=== PATIENT | female | born 1955 | race Caucasian/White ===

== ENCOUNTER 2016-08-24 17:32 | Emergency (ER) | payer SELFPAY ==
[2015-08-04 17:59] VITALS: BMI 28.7
[~2016-08-24 17:32] MED LIST: NITR-58 PO; OSLT75C PO; TRAM-40 PO
== END 2016-08-24 18:05 | disposition left against medical advice (07) ==
LOC: FTE 17:32
DX: Z53.21 Procedure and treatment not carried out due to patient leaving prior to being seen by health care provider (principal)

== ENCOUNTER 2016-08-29 09:11 | Emergency (ER) | payer MEDICAID ==
[~2016-08-29] VITALS: Wt 71.5 kg
--- NOTE | 2016-08-29 10:42 | ERD ---
ER Documentation Chief Complaint Date/Time DATE: 08/29/16 TIME: 10:32 Chief Complaint bilateral arm pain and knee pain non traumatic for the past few days. HPI 61 y/o female presents to ED for non-traumatic bilateral shoulder/elbow/knee pain for about 2 months. Pain was described as achy 7/10 in rate. 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 States that there is no pain whenever she rests. Pain here in the emergency room 0/10. Been taking Motrin without relief. Reports that she does not have a primary care physician. Denies headache, loss of consciousness, dizziness, blurry vision, changes in vision, photophobia, facial pain, ear pain, throat pain, difficulty swallowing, neck pain, shoulder pain, chest pain, cough, hemoptysis, abdominal pain, back pain, loss of appetite, nausea, vomiting, hematochezia, diarrhea, constipation, urinary symptoms, bladder and bowel incontinences, extremity weakness, trauma, numbness or tingling sensation, difficulty walking, recent travel, recent exposure to illness, recent antibiotic use in the last 3 months, fever, chills. Allergy: NKA PMH: High cholesterol Family medical history: Denies Medications: Ibuprofen Surgery: Right shoulder surgery 6 years ago. 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 ROS All systems reviewed and are negative except as per history of present illness. Medications Home Meds Active Scripts Oseltamivir Phosphate* (Tamiflu*) 75 Mg Capsule, 75 MG PO BID for 5 Days, CAP Prov:JAIDA BERNARD PA-C 10/13/15 Tramadol Hcl* (Ultram*) 50 Mg Tablet, 50 MG PO Q6H Y for PAIN, #30 TAB Prov:BON YAO PA-C 08/04/15 Nitrofurantoin Monohyd Macrocr* (Macrobid*) 100 Mg Capsr, 100 MG PO BID for 7 Days, CAP Prov:BON YAO PA-C 08/04/15 Allergies Allergies: Coded Allergies: No Known Allergy (Unverified , 10/24/14) PMhx/Soc History of Surgery: Yes (APPENDECTOMY, shoulder) Anesthesia Reaction: No Hx Neurological Disorder: No Hx Respiratory Disorders: No Hx Cardiac Disorders: No Hx Psychiatric Problems: No Hx Miscellaneous Medical Probl: Yes (sciatica) Hx Alcohol Use: No Hx Substance Use: No Hx Tobacco Use: No FmHx Denies Physical Exam Vitals Vital Signs Date Time Temp Pulse Resp B/P Pulse Ox O2 Delivery O2 Flow Rate FiO2 08/29/16 09:14 98.5 84 20 140/74 98 Physical Exam CONSTITUTIONAL: Well-appearing; well-nourished; in no apparent distress. HEAD: Normocephalic; atraumatic. EYES: Conjunctiva clear, sclera non-icteric, EOM intact. PERRL Ears: Hearing intact. EACs clear, TMs non-bulging, non-inflamed, translucent & mobile, ossicles normal appearance, No obstructions, no erythema, no discharges Nose: No obstructions. No polyps. No external lesions. Mucosa non-inflamed. No external lesions, septum and turbinates normal. No rhinorrhea. No discharges. Frontal sinus is non-tender to palpation. Maxillary sinus is non-tender to palpation. MOUTH: Moist mucous membranes, no lesion, no obstructions, no vesicles, no thrush, patent airway Throat: Uvula in midline. Right tonsil is +1 with no erythema, no exudate. Left tonsil is +1 with no erythema, no exudate. Tolerating secretions well. Good gag reflex. Patent airway. Neck: Supple, without lesions, bruits, or adenopathy. No mass. Thyroid non- enlarged and non-tender to palpation. CHEST: Symmetrical chest. Respirations even and not labored. No retractions noted. CARDIOVASCULAR: Normal S1, S2. RRR. No murmurs, gallops. RESPIRATORY: Normal chest excursion with respiration; breath sounds clear and equal bilaterally; no wheezes, rhonchi, or rales. Breathing even and unlabored. Speaking in clear, full, and complete sentences w/ ease. ABDOMEN: Normal bowel sounds normal. Soft, round, non-distended, non-guarding, no tenderness, no rebound, no organomegaly, no masses, no pulsating abdominal mass. No hernia. No peritoneal signs. : No CVA tenderness. BACK: Symmetrical shoulder. Spine is midline without deformity, tenderness. No evidence of trauma or deformity. PELVIS: Stable pelvis. No evidence of trauma or deformity. MUSCULOSKELETAL: Normal gait and station. No misalignment, asymmetry, crepitation, defects, tenderness, masses, effusions, decreased range of motion, instability, atrophy or abnormal strength or tone in the head, neck, spine, ribs , pelvis or extremities. No calf tenderness. NEUROVASCULAR: Distal pulses are present. Pedal pulse are present, equal, and normal. Capillary refills are < 2 seconds. NEUROLOGIC: Alert and oriented x4. Speaks full and clear sentences. Cranial Nerves II-XII normal. Sensation to pain, touch, and proprioception normal. Grossly unremarkable. No neurologic deficits. Romberg test is negative. PSYCHOLOGICAL: The patients mood and manner are appropriate. No hallucinations , delusions. Not SI. Not HI. Has the capacity to decide for self SKIN: Normal for age and ethnicity; warm; dry; good turgor; no apparent lesions or exudates. No rashes, hives, discoloration. Intact. Procedures/MDM Examination: Unremarkable examination Disease process, medical treatment was explained to the patient and family member. They verbalized understanding and agreed with the diagnostic tests, and follow-up care. Re-evaluation: Consultation: None Differential diagnosis: Fracture versus contusion versus sprain versus arthritis versus rheumatoid arthritis versus musculoskeletal pain. Case and medical management was discussed with Dr. Dmitry Li. He agreed with present treatment and after care. Medical decision makin61 y/o female presents to ED for non-traumatic bilateral shoulder/elbow/knee pain for about 2 months. Pain was described as achy 7/10 in rate. 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 States that there is no pain whenever she rests. Pain here in the emergency room 0/10. Been taking Motrin without relief. Reports that she does not have a primary care physician. Medications prescribed are the following: Tramadol Patient and family member are made aware of the side effects and adverse reactions of the medications prescribed. Instructed on when to seek emergent and medical attention in case allergic/anaphylactic reactions or severe side effects and or adverse reactions to medications. Patient and family member verbalized understanding. Patient instructed Instructed to follow-up with his PCP in 24-48 hours. Community resources were given to the patient. Stated that she will go to the community resources as soon as possible. Instructed to Call 911 for chest pain, shortness of breath. Advised to come back here in ED as soon as possible for severity of symptoms which includes but not limited to: any new symptoms; shortness of breath/difficulty of breathing; cardiovascular changes; severe gastrointestinal symptoms; signs and symptoms of bleeding and or infection; signs of compartment syndrome/neurovascular changes; neurological changes/deficits. Patient and family member verbalized understanding. Upon discharge, patient is alert and oriented x 4, speaks full and clear sentences, denies pain, has no neurological deficits, has no neurovascular deficits, difficulty of breathing. Breathing even and unlabored. Lung sounds are clear to auscultation. Not in distress. Appears comfortable. Ambulatory with steady gait. Appears satisfied with care provided here in ED. Departure Condition: Good Additional Instructions: Patient instructed Instructed to follow-up with his PCP in 24-48 hours. Community resources were given to the patient. Stated that she will go to the community resources as soon as possible. Instructed to Call 911 for chest pain, shortness of breath. Advised to come back here in ED as soon as possible for severity of symptoms which includes but not limited to: any new symptoms; shortness of breath/difficulty of breathing; cardiovascular changes; severe gastrointestinal symptoms; signs and symptoms of bleeding and or infection; signs of compartment syndrome/neurovascular changes; neurological changes/deficits. Patient and family member verbalized understanding. Upon discharge, patient is alert and oriented x 4, speaks full and clear sentences, denies pain, has no neurological deficits, has no neurovascular deficits, difficulty of breathing. Breathing even and unlabored. Lung sounds are clear to auscultation. Not in distress. Appears comfortable. Ambulatory with steady gait. Appears satisfied with care provided here in ED. SHAUN FERNANDES Aug 29, 2016 10:42
[2016-08-29] MEDS ORDERED: TRAM50TA2 PO (10:46)
== END 2016-08-29 11:00 | disposition home or self-care (01) ==
LOC: FTE 09:11
DX: M25.512 Pain in left shoulder (principal); M25.521 Pain in right elbow; M25.522 Pain in left elbow; M25.561 Pain in right knee; M25.562 Pain in left knee
CPT/HCPCS: 99283

== ENCOUNTER 2016-12-01 18:43 | Emergency (ER) | payer MEDICAID ==
[~2016-12-01] VITALS: Ht 152.4 cm; Wt 69.5 kg
[~2016-12-01 18:43] MED LIST changes: +TRAM50TA2 PO
[2016-12-01 19:16] VITALS: Ht 152.4 cm; Wt 69.5 kg
[2016-12-01] MEDS ORDERED: NAPH15DR22 BOTH EYES (19:31)
[2016-12-01] MEDS ORDERED: IBUP-1542 PO (19:31)
[2016-12-01] MEDS ORDERED: CETI10CA PO (19:31)
[2016-12-01] MEDS ORDERED: FLUT9.9S NASAL (19:31)
--- NOTE | 2016-12-01 19:41 | ERD ---
ER Documentation Chief Complaint Date/Time DATE: 12/01/16 TIME: 19:38 Chief Complaint nasal congestion x 8 days HPI 61-year-old female presents to emergency department for complaints of runny nose nasal congestion, stuffy nose, sneezing, watery eyes for 8 days. Patient denies any cough, patient is complaining of itching in the throat, complains of postnasal drip. She took [id number] medication with only mild relief. Patient denies any fever or chills. Patient denies any chest palpitations. Patient denies any shortness breath or wheezing. Patient denies any purulent discharge from the nose, patient denies any discharge from the eyes. ROS All systems reviewed and are negative except as per history of present illness. Medications Home Meds Active Scripts Naphazoline-Pheniramine* (Visine-A*) 15 Ml Drops, 2 DROP BOTH EYES Q4H Y for eye itching, #1 BOT Prov:NILA MCKENNA NP 12/01/16 Ibuprofen* (Motrin*) 600 Mg Tab, 600 MG PO Q6H Y for PAIN AND OR ELEVATED TEMP, #30 TAB Prov:NILA MCKENNA NP 12/01/16 Cetirizine Hcl* (Zyrtec*) 10 Mg Capsule, 10 MG PO DAILY, #30 TAB.CHEW Prov:NILA MCKENNA NP 12/01/16 Fluticasone Propionate (Flonase Allergy Relief) 9.9 Ml [place].susp, 1 SPRAY NASAL BID, #1 BOTTLE TO EACH NOSTRIL Prov:NILA MCKENNA NP 12/01/16 Tramadol HCl (Tramadol HCl) 50 Mg Tablet, 50 MG PO Q4 Y for PAIN, #20 TAB Prov:SHAUN FERNANDES 08/29/16 Oseltamivir Phosphate* (Tamiflu*) 75 Mg Capsule, 75 MG PO BID for 5 Days, CAP Prov:JAIDA BERNARD PA-C 10/13/15 Tramadol Hcl* (Ultram*) 50 Mg Tablet, 50 MG PO Q6H Y for PAIN, #30 TAB Prov:BON YAO PA-C 08/04/15 Nitrofurantoin Monohyd Macrocr* (Macrobid*) 100 Mg Capsr, 100 MG PO BID for 7 Days, CAP Prov:BON YAO PA-C 08/04/15 Allergies Allergies: Coded Allergies: No Known Allergy (Unverified , 12/01/16) PMhx/Soc History of Surgery: Yes (APPENDECTOMY, shoulder) Anesthesia Reaction: No Hx Neurological Disorder: No Hx Respiratory Disorders: No Hx Cardiac Disorders: No Hx Psychiatric Problems: No Hx Miscellaneous Medical Probl: Yes (sciatica) Hx Alcohol Use: No Hx Substance Use: No Hx Tobacco Use: No FmHx Family History: No coronary disease, No diabetes, No other Physical Exam Vitals Vital Signs Date Time Temp Pulse Resp B/P Pulse Ox O2 Delivery O2 Flow Rate FiO2 12/01/16 19:16 98.2 67 20 144/67 99 Physical Exam GENERAL: The patient is well developed and appropriate for usual state of health, in no apparent distress. HEENT: Atraumatic. Eyes are PERRL, EOM intact, bilateral eye conjunctival is noted to be nonerythematous and not injected but is watery. No purulent discharge from both eyes. Ears: Normal tympanic membrane, no erythema or bulging. No ear canal swelling. No ear discharge. Nose: Pale boggy nares with clear nasal discharge. Throat: oropharynx clear. No tonsillar swelling or tonsillar exudates. No lymphadenopathy. CHEST: Clear to auscultation bilaterally. There are no rales, wheezes or rhonchi. HEART: Regular rate and rhythm. No murmurs, clicks, rubs or gallops. No S3 or S4. ABDOMEN: Soft, nontender and nondistended. Good bowel sounds. No rebound or guarding. No gross peritonitis. No gross organomegaly or masses. No Goyal sign or McBurney point tenderness. BACK: No midline or flank tenderness. EXTREMITIES: Equal pulses bilaterally. There is no peripheral clubbing, cyanosis or edema. No focal swelling or erythema. Full range of motion. Grossly neurovascularly intact. NEURO: Alert and oriented. Cranial nerves 2-12 intact. Motor strength in all 4 extremities with 5/5 strength. Sensation grossly intact. Normal speech and gait. SKIN: There is no apparent rash or petechia. The skin is warm and dry. HEMATOLOGIC AND LYMPHATIC: There is no evidence of excessive bruising or lymphedema. No gross cervical, axillary, or inguinal lymphadenopathy. Procedures/MDM Medical decision making: Patient symptoms is likely consistent with allergic conjunctivitis and allergic rhinitis, no symptoms of any acute bacterial infection, no symptoms of acute bacterial conjunctivitis, acute bacterial sinusitis. Patient is not febrile. No symptoms of eye emergencies. Patient is given prescription for Zyrtec, Flonase, Naphcon, is advised to follow-up with primary doctor in 2-3 days for reevaluation of symptoms. Patient is advised to return to emergency department for any worsening symptoms be Departure Diagnosis: Primary Impression: Allergic conjunctivitis and rhinitis Laterality: bilateral Qualified Code: H10.13 - Allergic conjunctivitis and rhinitis, bilateral Condition: Stable Patient Instructions: Conjunctivitis, Allergic, Allergic Rhinitis NILA MCKENNA NP Dec 01, 2016 19:41
== END 2016-12-01 19:35 | disposition home or self-care (01) ==
LOC: E/R 18:43
DX: H10.13 Acute atopic conjunctivitis, bilateral (principal)
CPT/HCPCS: 99283

== ENCOUNTER 2017-04-06 18:45 | Emergency (ER) | payer MEDICAID ==
[~2017-04-06] VITALS: Ht 162.6 cm; Wt 68.0 kg
[~2017-04-06 18:45] MED LIST changes: +CETI10CA PO; +FLUT9.9S NASAL; +IBUP-1542 PO; +NAPH15DR22 BOTH EYES
[2017-04-06 18:52] VITALS: Ht 162.6 cm; Wt 68.0 kg
[2017-04-06] MEDS ORDERED: KETOROLAC 60 MG INJ IM STA (20:51)
--- NOTE | 2017-04-06 21:37 | ERD ---
ER Documentation Chief Complaint Date/Time DATE: 04/06/17 TIME: 21:27 Chief Complaint left leg pain x 5 days, denies injury HPI This is a 61-year-old female presents to the ER with left knee pain for the last 5 days. Patient states that knee pain started after she was moving her couch with her knees. Knee is sharp and intermittent, it is worse after she works all day. Pain is nonradiating. Patient states that she works standing up and has long hours. Patient denies any numbness or tingling of her lower extremity. She denies any redness, swelling, fevers or chills. Patient took naproxen for her pain and this helped her pain. ROS 12 point review of systems was done, all negative except per HPI. Medications Home Meds Active Scripts Tramadol Hcl* (Ultram*) 50 Mg Tablet, 50 MG PO Q6H Y for PAIN, #15 TAB Prov:VANESA CHAUDHRY 04/06/17 Naproxen* (Naprosyn*) 500 Mg Tablet, 500 MG PO BID Y for PAIN AND/OR INFLAMMATION, #30 TAB Prov:VANESA CHAUDHRY 04/06/17 Naphazoline-Pheniramine* (Visine-A*) 15 Ml Drops, 2 DROP BOTH EYES Q4H Y for eye itching, #1 BOT Prov:NILA MCKENNA NP 12/01/16 Ibuprofen* (Motrin*) 600 Mg Tab, 600 MG PO Q6H Y for PAIN AND OR ELEVATED TEMP, #30 TAB Prov:NILA MCKENNA NP 12/01/16 Cetirizine Hcl* (Zyrtec*) 10 Mg Capsule, 10 MG PO DAILY, #30 TAB.CHEW Prov:NILA MCKENNA NP 12/01/16 Fluticasone Propionate (Flonase Allergy Relief) 9.9 Ml [place].susp, 1 SPRAY NASAL BID, #1 BOTTLE TO EACH NOSTRIL Prov:NILA MCKENNA NP 12/01/16 Tramadol HCl (Tramadol HCl) 50 Mg Tablet, 50 MG PO Q4 Y for PAIN, #20 TAB Prov:SHAUN FERNANDES 08/29/16 Oseltamivir Phosphate* (Tamiflu*) 75 Mg Capsule, 75 MG PO BID for 5 Days, CAP Prov:JAIDA BERNARD PA-C 10/13/15 Tramadol Hcl* (Ultram*) 50 Mg Tablet, 50 MG PO Q6H Y for PAIN, #30 TAB Prov:BON YAO PA-C 08/04/15 Nitrofurantoin Monohyd Macrocr* (Macrobid*) 100 Mg Capsr, 100 MG PO BID for 7 Days, CAP Prov:BON AYO PA-C 08/04/15 Allergies Allergies: Coded Allergies: No Known Allergy (Unverified , 12/01/16) PMhx/Soc Medical and Surgical Hx: pt denies Medical Hx, pt denies Surgical Hx History of Surgery: Yes (APPENDECTOMY, shoulder) Anesthesia Reaction: No Hx Neurological Disorder: No Hx Respiratory Disorders: No Hx Cardiac Disorders: No Hx Psychiatric Problems: No Hx Miscellaneous Medical Probl: Yes (sciatica) Hx Alcohol Use: No Hx Substance Use: No Hx Tobacco Use: No Smoking Status: Never smoker Physical Exam Vitals Vital Signs Date Time Temp Pulse Resp B/P Pulse Ox O2 Delivery O2 Flow Rate FiO2 04/06/17 22:10 60 17 135/74 98 Room Air 04/06/17 18:52 97.8 71 20 111/65 99 Physical Exam GENERAL: The patient is well developed and appropriate for usual state of health , in no apparent distress. HEENT: Atraumatic CHEST: Clear to auscultation bilaterally. There are no rales, wheezes or rhonchi. HEART: Regular rate and rhythm. No murmurs, clicks, rubs or gallops. EXTREMITIES: Left knee: Patient is able to bear weight and ambulate without pain. No surface trauma. No overlying erythema or warmth. The left knee is without obvious asymmetry when compared to the right knee. Patient is able to deep bend. she is able to fully extend knee, internal and external rotation. Not tender to palpation over the patella, no effusion. Not tender over the medial or lateral joint line, or the medial or lateral tibial plateau. Not tender to palpation over the proximal fibular head. No quadricep tenderness. No laxity of the ACL, PCL, MCL or LCL. Negative Amdhu test. Negative anterior and posterior drawer. Distal motor neurovascular status intact. NEURO: Alert and oriented SKIN: The skin is warm and dry. Results 24 hrs Current Medications Medications (Trade) Dose Ordered Sig/Pilar Route PRN Reason Start Time Stop Time Status Last Admin Dose Admin Ketorolac Tromethamine (Toradol) 60 mg ONCE STAT IM 04/06/17 20:51 04/06/17 20:53 DC 04/06/17 21:43 [place] [id number] Radiology Main Line: [phone] DIAGNOSTIC IMAGING REPORT Patient: KIRILL ROGEL : 1955 Age: 61 Sex: F MR #: [id number] DOS: 04/06/17 0000 Ordering MD: VANESA CHAUDHRY PA-C Location: [facility] Room/Bed: PROCEDURE: Left knee radiographs. CLINICAL INDICATION: Left knee pain. TECHNIQUE: Three views. Weight bearing. Frontal, lateral, and oblique. COMPARISON: No prior studies are available for comparison. FINDINGS: There is no fracture or dislocation. The soft tissues are normal. There are mild degenerative changes with small osteophytes arising from all 3 joint compartment margins. There is no lytic or blastic lesion. There is no radiopaque foreign body. IMPRESSION: 1. Mild degenerative change. 2. Otherwise normal images of the left knee. RPTAT: QQ .Dmitry Drew MD, MD Date Time Electronically viewed and signed by .Dmitry Drew MD, MD on 04/06/2017 21:41 .R/ CC: VANESA CHAUDHRY Procedures/MDM Differential diagnosis includes but is not limited to knee contusion, knee sprain, ligament injury, patellar dislocation, joint dislocation, patellar or tibial plateau fracture, Mead's cyst, DVT, meniscus tear, prepatellar bursitis , septic joint, gout, tumor., .Patient likely has a knee contusion. Patient is afebrile and extremely well-appearing suspicion for infectious etiology is low. Suspicion for osteomyelitis is low. Patient does not have any symptoms that were concerning for DVT. Patient will be sent home with medication. She is to follow-up with her primary care doctor within 1-2 days return to ER sooner if symptoms worsen. My medical decision making sure with the patient she understands and agrees with plan. Departure Diagnosis: Primary Impression: Knee pain, left ISIDOROVANESA Farrell Apr 06, 2017 21:37
--- NOTE | 2017-04-06 21:41 | RADRPT ---
PROCEDURE: Left knee radiographs. CLINICAL INDICATION: Left knee pain. TECHNIQUE: Three views. Weight bearing. Frontal, lateral, and oblique. COMPARISON: No prior studies are available for comparison. FINDINGS: There is no fracture or dislocation. The soft tissues are normal. There are mild degenerative changes with small osteophytes arising from all 3 joint compartment landry ins. There is no lytic or blastic lesion. There is no radiopaque foreign body. IMPRESSION: 1. Mild degenerative change. 2. Otherwise normal images of the left knee. RPTAT: QQ .Dmitry Drew MD, MD Date Time Electronically viewed and signed by .Dmitry Drew MD, on 04/06/2017 21:41 .R/
[2017-04-06] MEDS ORDERED: NAPR-260 PO (22:01)
[2017-04-06] MEDS ORDERED: TRAM-40 PO (22:02)
[2017-04-06 22:10] VITALS: BP 135/74; PULSE 60; RESP 17
== END 2017-04-06 22:10 | disposition home or self-care (01) ==
LOC: FTE 18:45
DX: M25.562 Pain in left knee (principal)
CPT/HCPCS: 73562; 96372; J1885; Z7502

== ENCOUNTER 2017-04-15 19:30 | Emergency (ER) | payer MEDICAID ==
[~2017-04-15] VITALS: Wt 62.0 kg
[~2017-04-15 19:30] MED LIST changes: +NAPR-260 PO
--- NOTE | 2017-04-15 22:16 | RADRPT ---
PROCEDURE: Ultrasound of the left lower extremity venous system. CLINICAL INDICATION: Left leg pain and swelling, deep venous thrombosis TECHNIQUE: Diez scale with and without compression, color doppler, spectral doppler of the venous system of the left lower extremity was performed. Venous augmentation maneuvers were utilized. COMPARISON: No prior studies are available for comparison. FINDINGS: Common femoral vein: Patent. Femoral vein: Patent. Popliteal vein: Patent. Calf veins: Patent. No soft tissue abnormalities are identified. IMPRESSION: No evidence of a deep vein thrombosis within the left lower extremity. RPTAT: AADD .Les Price MD, MD Date Time Electronically viewed and signed by .Les Price MD, on 04/15/2017 22:16 .B/
--- NOTE | 2017-04-15 22:58 | RADRPT ---
PROCEDURE: Left knee x-ray CLINICAL INDICATION: Left knee pain. TECHNIQUE: AP, lateral and oblique views of the left knee were obtained. COMPARISON: 04/06/2017. FINDINGS: There is normal mineralization. No acute fracture or dislocation is seen. There are no significant degenerative changes. There is no joint effusion. There is no significant soft tissue swelling. IMPRESSION: Normal x-ray of the left knee. RPTAT: [facility] Physician Negin Date Time Electronically viewed and signed by Declan Bazzi Physician on 04/15/2017 22:57 RS/
[2017-04-15] MEDS ORDERED: NAPR-260 PO (23:13)
[2017-04-16] VITALS: BP 138/70; PULSE 61; RESP 18; TEMP 97.2
--- NOTE | 2017-04-16 00:16 | ERD ---
ER Documentation Chief Complaint Date/Time DATE: 04/16/17 TIME: 00:13 Chief Complaint left knee pain and swelling HPI 61-year-old female coming in complaining of left knee pain. Patient states that she has not had recent injury or fall. Patient denies any numbness or tingling. Patient took tramadol with no alleviation of symptoms. Denies any swelling. States the pain is worse with ambulation. Denies numbness or tingling to her distal extremity. Patient has had pain before however feels the pain is worsening. ROS All systems reviewed and are negative except as per history of present illness. Medications Home Meds Active Scripts Naproxen* (Naprosyn*) 500 Mg Tablet, 500 MG PO BID Y for PAIN AND/OR INFLAMMATION, #30 TAB Prov:BON YAO PA-C 04/15/17 Tramadol Hcl* (Ultram*) 50 Mg Tablet, 50 MG PO Q6H Y for PAIN, #15 TAB Prov:VANESA CHAUDHRY 04/06/17 Naproxen* (Naprosyn*) 500 Mg Tablet, 500 MG PO BID Y for PAIN AND/OR INFLAMMATION, #30 TAB Prov:VANESA CHAUDHRY 04/06/17 Naphazoline-Pheniramine* (Visine-A*) 15 Ml Drops, 2 DROP BOTH EYES Q4H Y for eye itching, #1 BOT Prov:NILA MCKENNA NP 12/01/16 Ibuprofen* (Motrin*) 600 Mg Tab, 600 MG PO Q6H Y for PAIN AND OR ELEVATED TEMP, #30 TAB Prov:NILA MCKENNA NP 12/01/16 Cetirizine Hcl* (Zyrtec*) 10 Mg Capsule, 10 MG PO DAILY, #30 TAB.CHEW Prov:NILA MCKENNA NP 12/01/16 Fluticasone Propionate (Flonase Allergy Relief) 9.9 Ml [place].susp, 1 SPRAY NASAL BID, #1 BOTTLE TO EACH NOSTRIL Prov:NILA MCKENNA NP 12/01/16 Tramadol HCl (Tramadol HCl) 50 Mg Tablet, 50 MG PO Q4 Y for PAIN, #20 TAB Prov:SHAUN FERNANDES 08/29/16 Oseltamivir Phosphate* (Tamiflu*) 75 Mg Capsule, 75 MG PO BID for 5 Days, CAP Prov:JAIDA BERNARD PA-C 10/13/15 Tramadol Hcl* (Ultram*) 50 Mg Tablet, 50 MG PO Q6H Y for PAIN, #30 TAB Prov:BON YAO PA-C 08/04/15 Nitrofurantoin Monohyd Macrocr* (Macrobid*) 100 Mg Capsr, 100 MG PO BID for 7 Days, CAP Prov:BON YAO PA-C 08/04/15 Allergies Allergies: Coded Allergies: No Known Allergy (Unverified , 12/01/16) PMhx/Soc History of Surgery: Yes (APPENDECTOMY, shoulder) Anesthesia Reaction: No Hx Neurological Disorder: No Hx Respiratory Disorders: No Hx Cardiac Disorders: No Hx Psychiatric Problems: No Hx Miscellaneous Medical Probl: Yes (sciatica) Hx Alcohol Use: No Hx Substance Use: No Hx Tobacco Use: No Smoking Status: Never smoker Physical Exam Vitals Vital Signs Date Time Temp Pulse Resp B/P Pulse Ox O2 Delivery O2 Flow Rate FiO2 04/16/17 00:00 97.2 61 18 138/70 100 Room Air 04/15/17 19:34 97.7 80 20 135/63 97 Physical Exam GENERAL: The patient is well-appearing, well-nourished, in no acute distress CHEST: Clear to auscultation bilaterally. There are no rales, wheezes or rhonchi. HEART: Regular rate and rhythm. No murmurs, clicks, rubs or gallops. No S3 or S4. EXTREMITIES: No valgus or varus deformity of the left knee. No obvious swelling. No warmth to the joint. Patient has normal flexion-extension however the guarded secondary to pain. No effusion. NEUROLOGIC: Alert and oriented. Cranial nerves II through XII intact. Motor strength in all 4 extremities with 5 out of 5 strength. Sensation grossly intact. Normal speech and gait. Babinski negative. DTR 2+ throughout. SKIN: There is no apparent rash or petechiae. The skin is warm and dry. HEMATOLOGIC AND LYMPHATIC: There is no evidence of excessive bruising or lymphadenopathy. No gross cervical, axillary, or inguinal lymphadenopathy. Procedures/MDM DIAGNOSTIC IMAGING REPORT Patient: KIRILL ROGEL : 1955 Age: 61 Sex: F MR #: [id number] DOS: 04/15/172028 Ordering MD: JIHAN YAO PA-C Location: [facility] Room/Bed: PROCEDURE: Ultrasound of the left lower extremity venous system. CLINICAL INDICATION: Left leg pain and swelling, deep venous thrombosis TECHNIQUE: Diez scale with and without compression, color doppler, spectral doppler of the venous system of the left lower extremity was performed. Venous augmentation maneuvers were utilized. COMPARISON: No prior studies are available for comparison. FINDINGS: Common femoral vein: Patent. Femoral vein: Patent. Popliteal vein: Patent. Calf veins: Patent. No soft tissue abnormalities are identified. IMPRESSION: No evidence of a deep vein thrombosis within the left lower extremity. DIAGNOSTIC IMAGING REPORT Patient: KIRILL ROGEL : 1955 Age: 61 Sex: F MR #: [id number] DOS: 04/15/172028 Ordering MD: JIHAN YAO PA-C Location: [facility] Room/Bed: PROCEDURE: Left knee x-ray CLINICAL INDICATION: Left knee pain. TECHNIQUE: AP, lateral and oblique views of the left knee were obtained. COMPARISON: 04/06/2017. FINDINGS: There is normal mineralization. No acute fracture or dislocation is seen. There are no significant degenerative changes. There is no joint effusion. There is no significant soft tissue swelling. IMPRESSION: Normal x-ray of the left knee. ER Course: Micah wrap given in ED MDM: 61-year-old female coming in complaining of left knee pain. I have low suspicion for septic joint. I have low suspicion for vascular emergency. I have low suspicion for acute fracture dislocation. Patient's ultrasound and x- rays are within normal limits. Patient does not have fever and there is no erythema or warmth to the joint space. Patient does not have severe pain with flexion extension. I did not feel that further workup was indicated at today's visit. Patient was given an Micah wrap for pain control. Patient was told if symptoms change or worsen to return to the ER. I recommend patient to follow- up with primary care within 1-2 days for close evaluation. Departure Diagnosis: Primary Impression: Knee pain Condition: Stable Patient Instructions: Knee Pain, Uncertain Cause Referrals: COMMUNITY CLINICS YOU HAVE RECEIVED A MEDICAL SCREENING EXAM AND THE RESULTS INDICATE THAT YOU DO NOT HAVE A CONDITION THAT REQUIRES URGENT TREATMENT IN THE EMERGENCY DEPARTMENT. FURTHER EVALUATION AND TREATMENT OF YOUR CONDITION CAN WAIT UNTIL YOU ARE SEEN IN YOUR DOCTORS OFFICE WITHIN THE NEXT 1-2 DAYS. IT IS YOUR RESPONSIBILITY TO MAKE AN APPOINTMENT FOR FOLOW-UP CARE. IF YOU HAVE A PRIMARY DOCTOR --you should call your primary doctor and schedule an appointment IF YOU DO NOT HAVE A PRIMARY DOCTOR YOU CAN CALL OUR PHYSICIAN REFERRAL HOTLINE AT IF YOU CAN NOT AFFORD TO SEE A PHYSICIAN YOU CAN CHOSE FROM THE FOLLOWING [facility] CLINICS [facility] [address] [facility]. [facility] [address] [facility] [facility] [address] [facility]. [facility] [address] [facility]. [facility] [address] [facility]. [facility] [address] Additional Instructions: FOLLOW UP WITH YOUR PRIMARY CARE PHYSICIAN TOMORROW.Return to this facility if you are not improving as expected. BON YAO PA-C Apr 16, 2017 00:16
== END 2017-04-16 | disposition home or self-care (01) ==
LOC: FTE 19:30
DX: M25.562 Pain in left knee (principal)
CPT/HCPCS: 73562; 93971; Z7502

== ENCOUNTER 2017-07-08 08:27 | Emergency (ER) | payer MEDICAID ==
[~2017-07-08] VITALS: Ht 154.9 cm; Wt 65.0 kg
[2017-07-08 08:30] VITALS: Ht 154.9 cm; Wt 65.0 kg
[2017-07-08] MEDS ORDERED: ONDANSETRON 4 MG INJ IV STA (08:48)
[2017-07-08] MEDS ORDERED: SOD CHLORIDE 0.9% 1,000 ML IV STA (09:02)
[2017-07-08] MEDS ORDERED: LIDOCAINE/MYLANTA 40 ML BTL PO STA (09:02)
[2017-07-08] MEDS ORDERED: FAMOTIDINE 20 MG TAB PO STA (09:02)
--- NOTE | 2017-07-08 09:02 | ERD ---
ER Documentation Chief Complaint Chief Complaint pt bib sefl with c/o abd pain for a few days with vomiting HPI This is a 62-year-old female with a past medical history of an appendectomy, previous UTIs, who is presenting with acute onset epigastric and right sided abdominal pain with nausea and several episodes of nonbilious nonbloody vomiting that began last night. The patient also reports episodes of diarrhea. She has not had any bloody or dark or tarry stools. She does not endorse any issues with urination. She does not endorse any bleeding or burning or pain with urination. The patient denies feeling sick recently. The patient denies fever or chills. The patient has had no headache or vision changes. The patient does not endorse neck or back pain. The patient denies lightheadedness or dizziness. The patient has had no chest pain or shortness of breath or trouble breathing. The patient has had no focal deficits. The patient has had no weakness or numbness or tingling to the face or extremities. ROS All systems reviewed and are negative except as per history of present illness. Medications Home Meds Active Scripts Naproxen* (Naprosyn*) 500 Mg Tablet, 500 MG PO BID Y for PAIN AND/OR INFLAMMATION, #30 TAB Prov:BON YAO PA-C 04/15/17 Tramadol Hcl* (Ultram*) 50 Mg Tablet, 50 MG PO Q6H Y for PAIN, #15 TAB Prov:VANESA CHAUDHRY 04/06/17 Naproxen* (Naprosyn*) 500 Mg Tablet, 500 MG PO BID Y for PAIN AND/OR INFLAMMATION, #30 TAB Prov:VANESA CHAUDHRY 04/06/17 Naphazoline-Pheniramine* (Visine-A*) 15 Ml Drops, 2 DROP BOTH EYES Q4H Y for eye itching, #1 BOT Prov:NILA MCKENNA NP 12/01/16 Ibuprofen* (Motrin*) 600 Mg Tab, 600 MG PO Q6H Y for PAIN AND OR ELEVATED TEMP, #30 TAB Prov:NILA MCKENNA NP 12/01/16 Cetirizine Hcl* (Zyrtec*) 10 Mg Capsule, 10 MG PO DAILY, #30 TAB.CHEW Prov:NILA MCKENNA NP 12/01/16 Fluticasone Propionate (Flonase Allergy Relief) 9.9 Ml [place].susp, 1 SPRAY NASAL BID, #1 BOTTLE TO EACH NOSTRIL Prov:NILA MCKENNA NP 12/01/16 Tramadol HCl (Tramadol HCl) 50 Mg Tablet, 50 MG PO Q4 Y for PAIN, #20 TAB Prov:SHAUN FERNANDES 08/29/16 Oseltamivir Phosphate* (Tamiflu*) 75 Mg Capsule, 75 MG PO BID for 5 Days, CAP Prov:JAIDA BERNARD PA-C 10/13/15 Tramadol Hcl* (Ultram*) 50 Mg Tablet, 50 MG PO Q6H Y for PAIN, #30 TAB Prov:BON YAO PA-C 08/04/15 Nitrofurantoin Monohyd Macrocr* (Macrobid*) 100 Mg Capsr, 100 MG PO BID for 7 Days, CAP Prov:BON YAO PA-C 08/04/15 Allergies Allergies: Coded Allergies: No Known Allergy (Unverified , 12/01/16) PMhx/Soc History of Surgery: Yes (APPENDECTOMY, shoulder) Anesthesia Reaction: No Hx Neurological Disorder: No Hx Respiratory Disorders: No Hx Cardiac Disorders: No Hx Psychiatric Problems: No Hx Miscellaneous Medical Probl: Yes (sciatica) Hx Alcohol Use: No Hx Substance Use: No Hx Tobacco Use: No FmHx Family History: No coronary disease, No diabetes Physical Exam Vitals Vital Signs Date Time Temp Pulse Resp B/P Pulse Ox O2 Delivery O2 Flow Rate FiO2 07/08/17 08:30 98.6 78 20 105/71 98 Physical Exam Const: No apparent distress, well-developed, well-nourished Head: Normocephalic, Atraumatic Eyes: Normal Conjunctiva. Extraocular movements intact. Pupils equal, round and reactive to light ENT: Normal External Ears, Nose and Mouth. Neck: Full range of motion. No meningismus. Resp: Clear to auscultation bilaterally, No wheezes, rales or rhonchi Cardio: Regular rate and rhythm. No murmurs, rubs or gallops Abd: Soft, non distended, tenderness to the epigastrium and right upper quadrant. Normal bowel sounds Skin: No petechiae or rashes Back: No midline tenderness. No CVA tenderness Ext: No cyanosis, or edema Neur: Awake and alert, oriented 4. Cranial nerves intact. No facial droop. Normal strength, sensation and coordination. Psych: Normal Mood and Affect Result Diagram: 07/08/17 0855 07/08/17 0855 Results 24 hrs Laboratory Tests Test 07/08/17 08:55 White Blood Count 10.210^3/ul Red Blood Count 4.6110^6/ul Hemoglobin 14.3g/dl Hematocrit 41.9% Mean Corpuscular Volume 90.9fl Mean Corpuscular Hemoglobin 31.0pg Mean Corpuscular Hemoglobin Concent 34.1g/dl Red Cell Distribution Width 13.6% Platelet Count 30259^3/UL Mean Platelet Volume 9.0fl Neutrophils % 89.2% Lymphocytes % 6.6% Monocytes % 3.0% Eosinophils % 0.6% Basophils % 0.4% Nucleated Red Blood Cells % 0.0/100WBC Neutrophils # 9.110^3/ul Lymphocytes # 0.710^3/ul Monocytes # 0.310^3/ul Eosinophils # 0.110^3/ul Basophils # 0.010^3/ul Nucleated Red Blood Cells # 0.010^3/ul Sodium Level 141mmol/L Potassium Level 4.3mmol/L Chloride Level 106mmol/L Carbon Dioxide Level 25mmol/L Anion Gap 14 Blood Urea Nitrogen 14mg/dl Creatinine 0.69mg/dl Glucose Level 139mg/dl Calcium Level 9.0mg/dl Total Bilirubin 0.6mg/dl Direct Bilirubin 0.00mg/dl Indirect Bilirubin 0.6mg/dl Aspartate Amino Transf (AST/SGOT) 38IU/L Alanine Aminotransferase (ALT/SGPT) 46IU/L Alkaline Phosphatase 126IU/L Troponin I < 0.012ng/ml Total Protein 7.9g/dl Albumin 4.4g/dl Globulin 3.50g/dl Albumin/Globulin Ratio 1.25 Lipase 387U/L Current Medications Medications (Trade) Dose Ordered Sig/Pilar Route PRN Reason Start Time Stop Time Status Last Admin Dose Admin Ondansetron HCl 4 mg 4 mg ONCE STAT IV 07/08/17 08:48 07/08/17 08:50 DC 07/08/17 09:24 Sodium Chloride (NS) 1,000 ml @ 1,000 mls/hr Q1H STAT IV 07/08/17 09:02 07/08/17 10:01 DC 07/08/17 09:24 Famotidine (Pepcid) 20 mg ONCE STAT PO 07/08/17 09:02 07/08/17 09:03 DC 07/08/17 09:24 Miscellaneous Medication (Gi Cocktail (2)) 40 ml ONCE STAT PO 07/08/17 09:02 07/08/17 09:03 DC 07/08/17 09:24 Procedures/[facility] MDM The patient's presentation warrants further investigation. The patient had a previous appendectomy and I have low suspicion for appendicitis. There is a possibility of biliary disease given her symptoms. A abdominal ultrasound will be obtained. The patient was given medications for gastritis versus GERD. I have low suspicion for a perforated ulcer. The patient does not have a palpable pulsatile mass. I have low suspicion for AAA. The patient's findings are not consistent with mesenteric ischemia. LABS The patient's blood work was obtained and reviewed. The patient's CBC shows no leukocytosis. The patient is afebrile and does not appear systemically ill. I do not suspect a systemic infection. The patient is not anemic today. The patient's platelet count is unremarkable. The patient's CMP shows no signs of metabolic or electrolyte emergencies. The patient has unremarkable renal and hepatic function testing. The patient's lipase is mildly elevated between 300- 400, but it is not 3 times the upper limit of normal. IMAGING Abd US FINDINGS: Liver Length: 15.17 cm. Parenchyma: Normal echogenicity. No suspicious mass or cyst. Portal vein: Patent with normal hepatopetal flow. Biliary tree Gallbladder: No distension. No wall thickening. No pericholecystic fluid. No sludge or stones. Intrahepatic bile duct: Normal. Common bile duct: 1.9 mm. Pancreas: The visualized pancreas is normal. Right kidney Length: 10.1 x 3.5 cm. Parenchyma: No stone or hydronephrosis. Free fluid: None. IMPRESSION: Unremarkable examination. Electronically viewed and signed by Physician Natalya on 07/08/2017 09 :30 CXR FINDINGS: The lungs are clear. No focal opacification is seen. No pneumothorax or pleural effusion is seen. The cardiomediastinal silhouette is unremarkable. The osseous structures are grossly unremarkable. IMPRESSION: No evidence of acute cardiopulmonary disease. Electronically viewed and signed by .Ernie Amanda MD, on 07/08/2017 09:19 TREATMENT/DISPOSITION The patient was given IV fluids, Zofran, Pepcid, GI cocktail with significant improvement of her symptoms. The patient's symptoms may be consistent with a gastritis or possible ulcer. She will be encouraged to refrain from using NSAIDs. Is also possibility of impending pancreatitis, but the patient's lipase is not significantly elevated at this time. She will be given prescription for Zofran and encouraged to maintain adequate oral hydration. The patient does not have symptoms consistent with a urinary tract infection. I did want to check her urine, but she did not provide us with a sample in the emergency department. She will follow-up with her doctor if she develops urinary symptoms. At this time, I feel that the patient stable for discharge. The patient will need follow-up with his primary care physician in 2-3 days. The patient will be given strict precautions with which to return to the emergency department. The patient's blood pressure was elevated at greater than 120/80 while in the emergency department. The patient was otherwise stable with no evidence of hypertensive urgency or emergency or end organ damage. The patient does not require admission for blood pressure control. I have discussed with the patient the risks of hypertension. I have advised the patient to follow up with the primary care physician for outpatient monitoring and treatment for hypertension in 2-3 days. I have instructed the patient to return to the ER for any new or worsening symptoms including chest pain, shortness of breath, headache, blurred vision, confusion, nausea, vomiting or LOC. Disclaimer: Inadvertent spelling and grammatical errors are likely due to EHR/ dictation software use and do not reflect on the overall quality of patient care. Note that the electronic time recorded on this note does not necessarily reflect the actual time of the patient encounter. Departure Diagnosis: Primary Impression: Abdominal pain Abdominal location: epigastric Qualified Code: R10.13 - Epigastric pain Additional Impression: Pancreatitis Chronicity: acute Pancreatitis type: unspecified pancreatitis type Acute pancreatitis complication: unspecified Qualified Code: K85.90 - Acute pancreatitis, unspecified complication status, unspecified pancreatitis type Condition: VANI Marie MD Jul 08, 2017 08:59
[2017-07-08 09:13] LABS: BASOPHILS % 0.4 % (0.0-2.0); EOSINOPHILS # 0.1 10^3/ul (0.0-0.5); EOSINOPHILS % 0.6 % (0.0-7.0); HEMATOCRIT 41.9 % (37.0-47.0); HEMOGLOBIN 14.3 g/dl (12.0-16.0); LYMPHOCYTES # 0.7 10^3/ul (0.8-2.9); LYMPHOCYTES % 6.6 % (15.0-51.0); MEAN CORPUSCULAR HGB CONC 34.1 g/dl (32.0-37.0); MEAN CORPUSCULAR VOLUME 90.9 fl (82.0-101.0); MONOCYTE # 0.3 10^3/ul (0.3-0.9); NEUTROPHIL # 9.1 10^3/ul (1.6-7.5); NEUTROPHILS % 89.2 % (39.0-77.0); PLATELET COUNT 267 10^3/UL (140-415); RED BLOOD COUNT 4.61 10^6/ul (4.20-5.40); RED CELL DISTRIBUTION WIDTH 13.6 % (11.5-14.5); WHITE BLOOD COUNT 10.2 10^3/ul (4.8-10.8)
--- NOTE | 2017-07-08 09:19 | RADRPT ---
PROCEDURE: XR Chest. CLINICAL INDICATION: Abdominal pain TECHNIQUE: XR CHEST AP PORTABLE COMPARISON: None available. FINDINGS: The lungs are clear. No focal opacification is seen. No pneumothorax or pleural effusion is seen. The cardiomediastinal silhouette is unremarkable. The osseous structures are grossly unremarkable. IMPRESSION: No evidence of acute cardiopulmonary disease. RPTAT: QQ .Ernie Amanda MD, MD Date Time Electronically viewed and signed by .Ernie Amanda MD, on 07/08/2017 09:19 .A/
[2017-07-08 09:28] LABS: ALANINE AMINOTRANSFERASE 46 IU/L (13-69); ALBUMIN 4.4 g/dl (3.3-4.9); ALBUMIN/GLOBULIN RATIO 1.25; ALKALINE PHOSPHATASE 126 IU/L (42-121); ANION GAP 14 (8-16); ASPARTATE AMINO TRANSFERASE 38 IU/L (15-46); BILIRUBIN,INDIRECT 0.6 mg/dl (0-1.1); BILIRUBIN,TOTAL 0.6 mg/dl (0.2-1.3); BLOOD UREA NITROGEN 14 mg/dl (7-20); CARBON DIOXIDE 25 mmol/L (21-31); CHLORIDE 106 mmol/L (97-110); CREATININE 0.69 mg/dl (0.44-1.00); GLUCOSE 139 mg/dl (70-220); POTASSIUM 4.3 mmol/L (3.5-5.1); SODIUM 141 mmol/L (135-144); TOTAL PROTEIN 7.9 g/dl (6.1-8.1)
--- NOTE | 2017-07-08 09:30 | RADRPT ---
PROCEDURE: Limited Right Upper Quadrant Ultrasound CLINICAL INDICATION: Right upper quadrant pain. COMPARISON: None relevant listed. TECHNIQUE: Multiple transverse and longitudinal cesar-scale images of the abdomen were obtained, supp lemented with color, power, and spectral Doppler imaging when appropriate. FINDINGS: Liver Length: 15.17 cm. Parenchyma: Normal echogenicity. No suspicious mass or cyst. Portal vein: Patent with normal hepatopetal flow. Biliary tree Gallbladder: No distension. No wall thickening. No pericholecystic fluid. No sludge or stones. Intrahepatic bile duct: Normal. Common bile duct: 1.9 mm. Pancreas: The visualized pancreas is normal. Right kidney Length: 10.1 x 3.5 cm. Parenchyma: No stone or hydronephrosis. Free fluid: None. Additional comment: None. IMPRESSION: Unremarkable examination. RPTAT: HRSR Physician Natalya Date Time Electronically viewed and signed by Physician Natalya on 07/08/2017 09:30 /
[2017-07-08 09:40] LABS: TROPONIN-I < 0.012 ng/ml (0.00-0.12)
[2017-07-08] MEDS ORDERED: ONDA4TAB8 PO (12:26)
[2017-07-08 12:38] VITALS: BP 130/78; PULSE 80; RESP 20
[2017-07-08 13:06] LABS: ADD UMIC YES; UR ASCORBIC ACID NEGATIVE (NEGATIVE); UR BILIRUBIN (Dip) NEGATIVE (NEGATIVE); UR BLOOD (Dip) 1+ mg/dL (NEGATIVE); UR CLARITY CLEAR (CLEAR); UR COLOR YELLOW (YELLOW); UR GLUCOSE (Dip) NEGATIVE (NEGATIVE); UR KETONES (Dip) NEGATIVE (NEGATIVE); UR LEUKOCYTE ESTERASE (Dip) 1+ Leu/ul (NEGATIVE); UR NITRITE (Dip) NEGATIVE (NEGATIVE); UR NONSQUAMOUS EPITHELIAL CELL 3 /HPF (NONE SEEN); UR RBC 8 /HPF (0-5); UR SPECIFIC GRAVITY (Dip) 1.019 (1.003-1.030); UR SQUAMOUS EPITHELIAL CELL FEW /HPF (FEW); UR TOTAL PROTEIN (Dip) NEGATIVE (NEGATIVE); UR UROBILINOGEN (Dip) NEGATIVE (NEGATIVE)
== END 2017-07-08 12:39 | disposition home or self-care (01) ==
LOC: E/R 08:27
DX: K85.90 Acute pancreatitis without necrosis or infection, unspecified (principal)
CPT/HCPCS: 36415; 71010; 76705; 80053; 81001; 83690; 84484; 85025; 96374; J2405; J7030; Z7502; Z7610

== ENCOUNTER 2018-11-26 16:34 | Emergency (ER) | payer SELFPAY ==
[~2018-11-26] VITALS: Ht 165.1 cm; Wt 68.1 kg
[~2018-11-26 16:34] MED LIST changes: -NAPH15DR22 BOTH EYES; +NAPH15DR69 BOTH EYES; -NAPR-260 PO; +NAPR-985 PO; +ONDA4TAB8 PO; +OSEL75CA23 PO; -OSLT75C PO; -TRAM-40 PO; +TRAM50TA PO
[2018-11-26 17:17] VITALS: BP 115/66; PULSE 79; RESP 18; Ht 165.1 cm; Wt 68.1 kg
[2018-11-26] MEDS ORDERED: IBUP-1542 PO (18:17)
[2018-11-26] MEDS ORDERED: TRAM50TA2 PO (18:17)
[2018-11-26] MEDS ORDERED: CYCL10TA7 PO (18:18)
--- NOTE | 2018-11-26 18:22 | ERD ---
ER Documentation Chief Complaint Chief Complaint neck, Rt shoulder, Rt hip x1wk HPI 63-year-old female presents with pain in her upper back and right shoulder right hip for last week it may have started after folding closed. She denies fall, head injury, weakness, deficits, fevers, shortness of breath or chest pain. ROS All systems reviewed and are negative except as per history of present illness. Medications Home Meds Active Scripts Cyclobenzaprine Hcl* (Cyclobenzaprine Hcl*) 10 Mg Tablet, 10 MG PO TID, #15 TAB Prov:AYAZ CEDENO MD 11/26/18 Ibuprofen* (Motrin*) 600 Mg Tab, 600 MG PO Q6, #20 TAB Prov:AYAZ CEDENO MD 11/26/18 Ondansetron Hcl* (Zofran*) 4 Mg Tablet, 4 MG PO Q6H for NAUSEA AND/OR VOMITING, #20 TAB Prov:VANI SIMPSON MD 07/08/17 Naproxen* (Naprosyn*) 500 Mg Tablet, 500 MG PO BID PRN for PAIN AND/OR I NFLAMMATION, #30 TAB Prov:BON YAO PA-C 04/15/17 Tramadol Hcl* (Ultram*) 50 Mg Tablet, 50 MG PO Q6H PRN for PAIN, #15 TAB Prov:VANESA CHAUDHRY 04/06/17 Naproxen* (Naprosyn*) 500 Mg Tablet, 500 MG PO BID PRN for PAIN AND/OR INFLAMMATION, #30 TAB Prov:VANESA CHAUDHRY 04/06/17 Naphazoline-Pheniramine* (Visine-A*) 15 Ml Drops, 2 DROP BOTH EYES Q4H PRN for eye itching, #1 BOT Prov:NILA MCKENNA NP 12/01/16 Ibuprofen* (Motrin*) 600 Mg Tab, 600 MG PO Q6H PRN for PAIN AND OR ELEVATED TEMP, #30 TAB Prov:NILA MCKENNA NP 12/01/16 Cetirizine Hcl* (Zyrtec*) 10 Mg Capsule, 10 MG PO DAILY, #30 TAB.CHEW Prov:NILA MCKENNA NP 12/01/16 Fluticasone Propionate (Flonase Allergy Relief) 9.9 Ml [place].susp, 1 SPRAY NASAL BID, #1 BOTTLE TO EACH NOSTRIL Prov:NILA MCKENNA NP 12/01/16 Tramadol HCl (Tramadol HCl) 50 Mg Tablet, 50 MG PO Q4 PRN for PAIN, #20 TAB Prov:SHAUN FERNANDES 08/29/16 Oseltamivir Phosphate* (Tamiflu*) 75 Mg Capsule, 75 MG PO BID for 5 Days, CAP Prov:JAIDA BERNARD PA-C 10/13/15 Tramadol Hcl* (Ultram*) 50 Mg Tablet, 50 MG PO Q6H PRN for PAIN, #30 TAB Prov:BON YAO PA-C 08/04/15 Nitrofurantoin Monohyd Macrocr* (Macrobid*) 100 Mg Capsr, 100 MG PO BID for 7 Days, CAP Prov:BON YAO PA-C 08/04/15 Discontinued Scripts Tramadol HCl (Tramadol HCl) 50 Mg Tablet, 50 MG PO Q4 PRN for PAIN, #15 TAB Prov:AYAZ CEDENO MD 11/26/18 Allergies Allergies: Coded Allergies: No Known Allergy (Unverified , 12/01/16) PMhx/Soc History of Surgery: Yes (APPENDECTOMY, shoulder) Anesthesia Reaction: No Hx Neurological Disorder: No Hx Respiratory Disorders: No Hx Cardiac Disorders: No Hx Psychiatric Problems: No Hx Miscellaneous Medical Probl: Yes (sciatica) Hx Alcohol Use: No Hx Substance Use: No Hx Tobacco Use: No Smoking Status: Never smoker FmHx Family History: No diabetes, No coronary disease, No other Physical Exam Vitals Vital Signs Date Temp Pulse Resp B/P (MAP) Pulse Ox O2 O2 Flow FiO2 Time Delivery Rate 11/26/18 98.5 79 18 115/66 97 17:17 (82) Physical Exam Const: No acute distress Head: Atraumatic Eyes: Normal Conjunctiva ENT: Normal External Ears, Nose and Mouth. Neck: Full range of motion. No meningismus. Resp: Clear to auscultation bilaterally Cardio: Regular rate and rhythm, no murmurs Abd: Soft, non tender, non distended. Normal bowel sounds Skin: No petechiae or rashes Back: No midline or flank tenderness with minimal tenderness in the upper trapezius area right shoulder without restricted range of motion weakness or deficits. Ext: No cyanosis, or edema Neur: Awake and alert amatory without deficits, weakness. Psych: Normal Mood and Affect Procedures/MDM Patient presents with nontraumatic upper back and neck pain, right shoulder pain right hip pain. Patient is well-appearing without significant concerning findings on physical exam. She is ambulatory without deficits or weakness. Patient likely has muscular skeletal strain. She will be treated with ibuprofen, Flexeril, primary care follow-up and return precautions. The patient was stable with no new complaints during the ER course. Clinically, there is no current evidence to suggest meningitis, sepsis, acute abdomen, pneumonia, stroke, acute coronary syndrome, pulmonary embolism, aortic dissection or any other emergent condition appearing to require further evaluation or hospitalization. Patient counseled regarding my diagnostic impression and care plan. Prior to discharge all questions answered. Pt agrees with treatment plan and understands strict return precautions. Pt is instructed to follow up with primary care provider within 24-48 hours. Precautionary instructions provided including instructions to return to the ER if not improving or for any worsening or changing symptoms or concerns. Departure Diagnosis: Primary Impression: Neck pain Condition: Stable Patient Instructions: Neck Pain, No Trauma, Muscle Strain, Extremity Additional Instructions: Examines normal hoy. Cheque otro vez con huynh doctor primario en el proximo herring or regresa para mas o nueva simptomas. AYAZ CEDENO MD Nov 26, 2018 18:22
== END 2018-11-27 18:22 | disposition home or self-care (01) ==
LOC: FTE 16:34 → E/R 11-27 18:22
DX: M54.2 Cervicalgia (principal)
CPT/HCPCS: 99283

== ENCOUNTER 2019-03-09 10:06 | Emergency (ER) | payer MEDICAID ==
[~2019-03-09] VITALS: Ht 160 cm; Wt 70.4 kg
[~2019-03-09 10:06] MED LIST changes: +CYCL10TA7 PO; +DIAZ5TAB PO
[2019-03-09 10:08] VITALS: BP 131/64; PULSE 69; RESP 18; Ht 160 cm; Wt 70.4 kg
[2019-03-09] MEDS ORDERED: KETOROLAC 30 MG INJ IM STA (11:11)
--- NOTE | 2019-03-09 11:24 | ERD ---
ER Documentation Chief Complaint Chief Complaint upper back shoulder pain x3mths HPI 63-year-old female with no reported past medical history, history of chronic back pain who presents with complaint of upper back pain over the past 3 months. She denies any recent fall or trauma. States she has tried ibuprofen but has had GI upset. She otherwise denies upper extremity weakness or numbness, urinary or bowel incontinence, saddle anesthesia, lower extremity paresthesias or weakness. At time of examination patient able to ambulate in the room without issue. Her main complaint is persistent neck stiffness radiating to bilateral upper back and shoulder. ROS All systems reviewed and are negative except as per history of present illness. Medications Home Meds Active Scripts Naproxen* (Naprosyn*) 500 Mg Tablet, 500 MG PO BID PRN for PAIN AND/OR INFLAMMATION, #30 TAB Prov:RYAN VITAL PA-C 03/09/19 Diazepam* (Valium*) 5 Mg Tablet, 5 MG PO Q8, #10 TAB Prov:RYAN VITAL PA-C 03/09/19 Cyclobenzaprine Hcl* (Cyclobenzaprine Hcl*) 10 Mg Tablet, 10 MG PO TID, #15 TAB Prov:AYAZ CEDENO MD 11/26/18 Ibuprofen* (Motrin*) 600 Mg Tab, 600 MG PO Q6, #20 TAB Prov:AYAZ CEDENO MD 11/26/18 Ondansetron Hcl* (Zofran*) 4 Mg Tablet, 4 MG PO Q6H for NAUSEA AND/OR VOMITING, #20 TAB Prov:VANI SIMPSON MD 07/08/17 Naproxen* (Naprosyn*) 500 Mg Tablet, 500 MG PO BID PRN for PAIN AND/OR INFLAMMATION, #30 TAB Prov:BON YAO PA-C 04/15/17 Tramadol Hcl* (Ultram*) 50 Mg Tablet, 50 MG PO Q6H PRN for PAIN, #15 TAB Prov:VANESA CHAUDHRY 04/06/17 Naproxen* (Naprosyn*) 500 Mg Tablet, 500 MG PO BID PRN for PAIN AND/OR INFLAMMATION, #30 TAB Prov:VANESA CHAUDHRY 04/06/17 Naphazoline-Pheniramine* (Visine-A*) 15 Ml Drops, 2 DROP BOTH EYES Q4H PRN for eye itching, #1 BOT Prov:NILA MCKENNA NP 12/01/16 Ibuprofen* (Motrin*) 600 Mg Tab, 600 MG PO Q6H PRN for PAIN AND OR ELEVATED TEMP, #30 TAB Prov:NILA MCKENNA NP 12/01/16 Cetirizine Hcl* (Zyrtec*) 10 Mg Capsule, 10 MG PO DAILY, #30 TAB.CHEW Prov:NILA MCKENNA NP 12/01/16 Fluticasone Propionate (Flonase Allergy Relief) 9.9 Ml [place].susp, 1 SPRAY NASAL BID, #1 BOTTLE TO EACH NOSTRIL Prov:NILA MCKENNA NP 12/01/16 Tramadol HCl (Tramadol HCl) 50 Mg Tablet, 50 MG PO Q4 PRN for PAIN, #20 TAB Prov:SHAUN FERNANDES 08/29/16 Oseltamivir Phosphate* (Tamiflu*) 75 Mg Capsule, 75 MG PO BID for 5 Days, CAP Prov:JAIDA BERNARD PA-C 10/13/15 Tramadol Hcl* (Ultram*) 50 Mg Tablet, 50 MG PO Q6H PRN for PAIN, #30 TAB Prov:BON YAO PA-C 08/04/15 Nitrofurantoin Monohyd Macrocr* (Macrobid*) 100 Mg Capsr, 100 MG PO BID for 7 Days, CAP Prov:BON YAO PA-C 08/04/15 Allergies Allergies: Coded Allergies: No Known Allergy (Unverified , 03/09/19) PMhx/Soc History of Surgery: Yes (APPENDECTOMY, shoulder) Anesthesia Reaction: No Hx Neurological Disorder: No Hx Respiratory Disorders: No Hx Cardiac Disorders: No Hx Psychiatric Problems: No Hx Miscellaneous Medical Probl: Yes (sciatica) Hx Alcohol Use: No Hx Substance Use: No Hx Tobacco Use: No Smoking Status: Never smoker FmHx Family History: No diabetes, No coronary disease, No other Physical Exam Vitals Vital Signs Date Temp Pulse Resp B/P (MAP) Pulse Ox O2 O2 Flow FiO2 Time Delivery Rate 03/09/19 98.2 69 18 131/64 97 10:08 (86) Physical Exam Const: No acute distress Head: Atraumatic Eyes: Normal Conjunctiva ENT: Normal External Ears, Nose and Mouth. Neck: Full range of motion. No meningismus. Resp: Clear to auscultation bilaterally Cardio: Regular rate and rhythm, no murmurs Abd: Soft, non tender, non distended. Normal bowel sounds Skin: No petechiae or rashes Back: No midline or flank tenderness Ext: No cyanosis, or edema, full range of motion to upper back and shoulders, full range of motion to neck, tenderness to palpation to the bilateral sternal Betzy mastoid muscles Neur: Awake and alert Psych: Normal Mood and Affect Results 24 hrs Current Medications Medications Dose Sig/Pilar Start Time Status Last (Trade) Ordered Route PRN Stop Time Admin Dose Reason Admin Ketorolac 30 mg ONCE STAT 03/09/19 DC Tromethamine IM 11:11 03/09/19 (Toradol) 11:12 Diazepam 5 mg ONCE ONCE 03/09/19 (Valium) PO 11:30 03/09/19 11:31 Procedures/MDM 63-year-old female presents with complaint of upper back pain and neck and shoulder pain. Strong tension properties may be secondary to muscle strain, tension. Low suspicion for acute cord compression or cauda equina at this time, given presentation and symptoms, including epidural abscess or hematoma. Patient has no history of malignancy, active or distant history. Patient has no unexplained weight loss. No recent fevers, rigors, malaise, or recent infection. No history of IVDU or skin-popping. Patient does not have any history concerning for saddle anesthesia/perianal sensory loss or complaining of decreased rectal tone. Patient does not have urinary retention or inability to control urine from overflow. Patient has no tenderness overlying spinous process. Patient has no focal weakness on examination. We will discharge with appropriate medications for and supportive care instructions. Given exam and history, low suspicion for cord compression, cauda equina, e pidural abscess/hematoma. Distally neurovascularly intact. Query likely musculoskeletal component. Discussed pain control,and follow up with PMD. Cautious return precautions discussed w/ full understanding DISPOSITION PLAN: We discussed follow up with the patient's primary care doctor within 24 to 48 hours. Patient counseled regarding my diagnostic impression and care plan. Prior to discharge all questions answered. Pt agrees with treatment plan and understands strict return precautions. Precautionary instructions provided including instructions to return to the ER if not improving or for any worsening or changing symptoms or concerns. Disclaimer: Inadvertent spelling and grammatical errors are likely due to EHR/dictation software use and do not reflect on the overall quality of patient care. Also, please note that the electronic time recorded on this note does not necessarily reflect the actual time of the patient encounter. Departure Diagnosis: Primary Impression: Back pain Condition: Stable Patient Instructions: Back Pain (Acute Or Chronic), Neck Pain, No Trauma Additional Instructions: Call your primary care doctor TOMORROW for an appointment during the next 2-3 days.See the doctor sooner or return here if your condition worsens before your appointment time. RYAN VITAL PA-C Mar 09, 2019 11:24
[2019-03-09] MEDS ORDERED: DIAZEPAM 5 MG TAB PO ONE (11:30)
== END 2019-03-09 11:59 | disposition home or self-care (01) ==
LOC: FTE 10:06
DX: M54.6 Pain in thoracic spine (principal)
CPT/HCPCS: 96372; J1885; Z7502; Z7610